=== PATIENT | male | born 2000 | race Caucasian/White ===

== ENCOUNTER → 2020-01-30 | Outpatient (CLI) | payer BC ==
--- NOTE | 2020-01-30 12:53 | XR ---
EXAMINATION TYPE: XR chest 2V DATE OF EXAM: 01/30/2020 COMPARISON: NONE TECHNIQUE: PA and lateral views submitted. HISTORY: Chest pain FINDINGS: The lungs are clear and there is no pneumothorax, pleural effusion, or focal pneumonia. Heart size normal. No overt failure. Mildly prominent right paratracheal stripe. IMPRESSION: 1. No acute process. There is mild prominence of the right paratracheal stripe which could be associa lucretia with enlarged thyroid. Consider ultrasound or CT scan.
== END | disposition home or self-care (01) ==
LOC: RADXRMAIN 12:30
PROVIDERS: ATTEND Internal Medicine
DX: R07.9 Chest pain, unspecified (principal)
CPT/HCPCS: 71046

== ENCOUNTER → 2020-02-13 | Outpatient (CLI) | payer BC, OTHER ==
--- NOTE | 2020-02-13 15:26 | US ---
EXAMINATION TYPE: US thyroid st tissue head/neck DATE OF EXAM: 02/13/2020 COMPARISON: NONE CLINICAL HISTORY: R22.1 Neck mass, R93.8 Abnormal imaging. GLAND SIZE: Right Lobe: 4.8 x 1.6 x 1.3 cm Overall Parenchyma: heterogenous Left Lobe: 4.9 x 1.5 x 1.6 cm Overall Parenchyma: heterogeneous Isthmus Thickness: 0.2 cm NODULES RIGHT: # of nodules measured on right: 0 LEFT: # of nodules measured on left: 0 ISTHMUS: # of nodules measured in the isthmus: 0 Bilateral neck scanned, no evidence of lymphadenopathy. IMPRESSION: Normal thyroid scan
== END | disposition home or self-care (01) ==
LOC: RADUSWWP 12:56
PROVIDERS: ATTEND Internal Medicine
DX: R93.89 Abnormal findings on diagnostic imaging of other specified body structures (principal)
CPT/HCPCS: 76536

== ENCOUNTER → 2020-03-22 | Outpatient (CLI) | payer BC, OTHER ==
--- NOTE | 2020-03-23 09:42 | XR ---
EXAMINATION TYPE: XR ribs RT DATE OF EXAM: 03/22/2020 COMPARISON: Prior 01/30/2020 chest radiograph HISTORY: 19-year-old male injury, pain, assess for rib fracture TECHNIQUE: 4 views FINDINGS: No displaced right rib fracture. No pneumothorax, consolidation, or pleural effusion seen i n the right hemithorax. IMPRESSION: No displaced right rib fracture seen.
== END | disposition home or self-care (01) ==
LOC: RADXRMAIN 15:18
PROVIDERS: ATTEND Internal Medicine
DX: R07.81 Pleurodynia (principal); S29.9XXA Unspecified injury of thorax, initial encounter

== ENCOUNTER → 2023-06-11 | Outpatient (CLI) | payer BC ==
--- NOTE | 2023-06-11 12:14 | US ---
EXAMINATION TYPE: US liver DATE OF EXAM: 06/11/2023 COMPARISON: NONE CLINICAL INDICATION: Male, 22 years old with history of R94.5 ABNORMAL LIVER FUNCTION; Abnormal labs TECHNIQUE: Multiple sonographic images of the right upper quadrant are obtained. FINDINGS: EXAM MEASUREMENTS: Liver Length: 16.2 cm Gallbladder Wall: 0.2 cm CBD: 0.5 cm Right Kidney: 11.0 x 5.2 x 5.2 cm Pancreas: Obscured by bowel gas Liver: Echogenic, heterogeneous, probable fatty sparing near GB and madeline= 3.2 cm Gallbladder: wnl Evidence for sonographic Lopes's sign: No CBD: wnl Right Kidney: No evidence of hydro, lower pole gassed out IMPRESSION: 1. Liver echotexture suggests fatty infiltration but no focal liver mass or hepatomegaly. 2. Limited evaluation of pancreas and kidney due to bowel gas. 3. Unremarkable gallbladder and biliary tree.
== END | disposition home or self-care (01) ==
LOC: RADUSWWP 07:47
PROVIDERS: ATTEND Internal Medicine
DX: K76.89 Other specified diseases of liver (principal); R94.5 Abnormal results of liver function studies
CPT/HCPCS: 76705